=== PATIENT | male | born 2000 | race Caucasian/White ===

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

== ENCOUNTER 2018-08-08 11:59 | Emergency (ER) | payer OTHER ==
[~2018-08-08] VITALS: Ht 157.5 cm; Wt 61.7 kg
[2018-08-08 12:12] VITALS: Ht 157.5 cm; Wt 61.7 kg
[2018-08-08 14:28] LABS: microscopic required? NO
[2018-08-08 14:39] LABS: UA SPECIFIC GRAVITY 1.025 (1.005-1.035); urine erythrocyte NEGATIVE (NEGATIVE)
[2018-08-08 14:50] LABS: BASOPHIL % 0.2 % (0-2); PLATELET COUNT 175 x10^3mcL (130-400); RED CELL DISTRIBUTION WIDTH 13.5 % (11.5-14.5)
[2018-08-08 14:58] LABS: CALCIUM 8.9 mg/dL (8.5-10.1); CARBON DIOXIDE 29.3 mmol/L (21-32); CHLORIDE SERUM 104 mmol/L (98-107); CREATININE SERUM 0.7 mg/dL (0.7-1.3); GFR1 > 60 mL/min; GLUCOSE SERUM 82 mg/dL (74-106); POTASSIUM SERUM 4.2 mmol/L (3.5-5.1); SODIUM SERUM 139 mmol/L (136-145)
[2018-08-08 15:04] LABS: ALBUMIN 4.5 g/dL (3.4-5.0); ALKALINE PHOSPHATASE 84 U/L (46-116); ALT/SGPT 34 U/L (16-63); AST/SGOT 33 U/L (15-37); BILIRUBIN TOTAL 0.68 mg/dL (0.20-1.00); LIPASE 127 IU/L (73-393); TOTAL PROTEIN, SERUM 8.1 g/dL (6.4-8.2)
[2018-08-08 17:16] VITALS: BP 102/62
== END 2018-08-08 17:16 | disposition home or self-care (01) ==
LOC: ED 11:59
PROVIDERS: Emergency Medicine
DX: R10.32 Left lower quadrant pain (principal); R19.7 Diarrhea, unspecified; R11.0 Nausea; M79.1 Myalgia
CPT/HCPCS: J2270; J7030

== ENCOUNTER 2018-11-15 10:06 | Emergency (ER) | payer OTHER ==
[~2018-11-15] VITALS: Ht 160 cm; Wt 63.0 kg
[2018-11-15 10:10] VITALS: Ht 160 cm; Wt 63.0 kg
[2018-11-15 10:50] LABS: BASOPHIL % 0.4 % (0-2); PLATELET COUNT 167 x10^3mcL (130-400); RED CELL DISTRIBUTION WIDTH 13.8 % (11.5-14.5)
[2018-11-15 10:53] LABS: ALBUMIN 4.7 g/dL (3.4-5.0); ALKALINE PHOSPHATASE 70 U/L (46-116); ALT/SGPT 35 U/L (16-63); AST/SGOT 21 U/L (15-37); BILIRUBIN TOTAL 0.4 mg/dL (0.20-1.00); CARBON DIOXIDE 26.6 mmol/L (21-32); CHLORIDE SERUM 103 mmol/L (98-107); CREATININE SERUM 0.8 mg/dL (0.7-1.3); GFR1 > 60 mL/min; GLUCOSE SERUM 85 mg/dL (74-106); LIPASE 100 IU/L (73-393); POTASSIUM SERUM 4.4 mmol/L (3.5-5.1); SODIUM SERUM 141 mmol/L (136-145); TOTAL PROTEIN, SERUM 7.8 g/dL (6.4-8.2)
[2018-11-15 11:11] LABS: CALCIUM 9.8 mg/dL (8.5-10.1)
[2018-11-15 11:25] VITALS: BP 130/76
== END 2018-11-15 11:26 | disposition home or self-care (01) ==
LOC: ED 10:06
PROVIDERS: Emergency Medicine
DX: F17.210 Nicotine dependence, cigarettes, uncomplicated (principal); R10.11 Right upper quadrant pain; R11.2 Nausea with vomiting, unspecified; R61 Generalized hyperhidrosis; Z71.6 Tobacco abuse counseling
CPT/HCPCS: 36415; 99406; J1885; J2550; J7613

== ENCOUNTER 2019-03-02 10:49 | Emergency (ER) | payer OTHER ==
[~2019-03-02] VITALS: Ht 157.5 cm; Wt 59.9 kg
[2019-03-02 10:54] VITALS: Ht 157.5 cm; Wt 59.9 kg
[2019-03-02 12:43] VITALS: BP 116/75
== END 2019-03-02 12:43 | disposition home or self-care (01) ==
LOC: ED 10:49
DX: M54.5 Low back pain (principal); F17.210 Nicotine dependence, cigarettes, uncomplicated
CPT/HCPCS: J1885

== ENCOUNTER 2019-05-02 10:55 | Emergency (ER) | payer OTHER ==
[~2019-05-02] VITALS: Ht 160 cm; Wt 62.1 kg
[2019-05-02 11:17] VITALS: Ht 160 cm; Wt 62.1 kg
[2019-05-02 13:12] LABS: BASOPHIL % 0.5 % (0-2); PLATELET COUNT 166 x10^3mcL (130-400); RED CELL DISTRIBUTION WIDTH 13.2 % (11.5-14.5)
[2019-05-02 13:14] LABS: CALCIUM 9.1 mg/dL (8.5-10.1); CARBON DIOXIDE 27.3 mmol/L (21-32); CHLORIDE SERUM 105 mmol/L (98-107); CREATININE SERUM 0.9 mg/dL (0.7-1.3); GFR1 > 60 mL/min; GLUCOSE SERUM 80 mg/dL (74-106); SODIUM SERUM 141 mmol/L (136-145)
[2019-05-02 13:19] LABS: ALBUMIN 4.1 g/dL (3.4-5.0); ALKALINE PHOSPHATASE 74 U/L (46-116); ALT/SGPT 32 U/L (16-63); AST/SGOT 11 U/L (15-37); TOTAL PROTEIN, SERUM 7.2 g/dL (6.4-8.2)
[2019-05-02 16:15] VITALS: BP 126/64
== END 2019-05-02 16:15 | disposition home or self-care (01) ==
LOC: ED 10:55
PROVIDERS: Emergency Medicine
DX: B34.9 Viral infection, unspecified (principal); E86.0 Dehydration
CPT/HCPCS: 36415; Q0092; Q0162

== ENCOUNTER 2019-06-15 13:53 | Emergency (ER) | payer OTHER ==
[~2019-06-15] VITALS: Ht 157.5 cm; Wt 60.8 kg
[2019-06-15 13:56] VITALS: BP 105/75; Ht 157.5 cm; Wt 60.8 kg
== END 2019-06-15 14:31 | disposition home or self-care (01) ==
LOC: ED 13:53
DX: Z13.9 Encounter for screening, unspecified (principal)

== ENCOUNTER 2019-08-10 07:05 | Emergency (ER) | payer OTHER ==
[~2019-08-10] VITALS: Ht 160 cm; Wt 61.0 kg
[2019-08-10 07:09] VITALS: BP 103/61; Ht 160 cm; Wt 61.0 kg
== END 2019-08-10 09:35 | disposition home or self-care (01) ==
LOC: ED 07:05
DX: K59.00 Constipation, unspecified (principal); G47.00 Insomnia, unspecified
CPT/HCPCS: Q0092